=== PATIENT | male | born 2000 | race Caucasian/White ===

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

== ENCOUNTER 2021-10-13 16:32 | Emergency (ER) | payer MEDICAID ==
[~2021-10-13] VITALS: Ht 175.3 cm; Wt 70.3 kg
[2021-10-13 16:42] VITALS: BP 133/74
[2021-10-13] MEDS ORDERED: BENZ1LOZ MM (17:57)
[2021-10-13] MEDS ORDERED: PRED20TA5 PO (18:06)
--- NOTE | 2021-10-13 18:37 | NUR ---
Called - no show in lobby and outside.
--- NOTE | 2021-10-13 18:50 | NUR ---
21/m presents to ed with c/o sore throat x2 days stating he has began losing his voice. Patient denies cough, fevers, chills, n/v/d.
--- NOTE | 2021-10-13 19:06 | NUR ---
Patient left w/o dc work/instructions
== END 2021-10-13 19:06 | disposition home or self-care (01) ==
LOC: MED 16:32
DX: J02.9 Acute pharyngitis, unspecified (principal); J04.0 Acute laryngitis; Z79.899 Other long term (current) drug therapy
CPT/HCPCS: 99283

== ENCOUNTER 2021-10-16 20:57 | Emergency (ER) | payer MEDICAID ==
[~2021-10-16] VITALS: Ht 167.6 cm; Wt 70.3 kg
[~2021-10-16 20:57] MED LIST: BENZ1LOZ MM; PRED20TA5 PO
[2021-10-16 21:58] VITALS: BP 121/67
--- NOTE | 2021-10-16 22:04 | NUR ---
TO LOBBY FOLLOWING TRIAGE
--- NOTE | 2021-10-17 00:04 | NUR ---
PT CALLED FROM INSIDE LOBBY AND OUTSIDE NO RESPONSE.
--- NOTE | 2021-10-17 02:00 | NUR ---
CALLED BACK TO ER, NO ANSWER
== END 2021-10-17 02:00 | disposition left against medical advice (07) ==
LOC: MED 20:57
DX: R06.02 Shortness of breath (principal); Z53.21 Procedure and treatment not carried out due to patient leaving prior to being seen by health care provider

== ENCOUNTER 2021-10-19 13:56 | Emergency (ER) | payer MEDICAID ==
[~2021-10-19] VITALS: Ht 180.3 cm; Wt 68.9 kg
[2021-10-19 13:58] VITALS: BP 150/91
--- NOTE | 2021-10-19 14:06 | NUR ---
PT AMB TO BED 7.
--- NOTE | 2021-10-19 14:16 | NUR ---
BIB SELF C /O LUMP BEHIND LEFT EAR X 4 DAYS. DENIES TRAUMA/INJURY. PMH: DENIES
[2021-10-19] MEDS ORDERED: IBUP-2213 PO (14:36)
[2021-10-19 14:41] VITALS: BP 150/91
== END 2021-10-19 14:41 | disposition home or self-care (01) ==
LOC: MED 13:56
DX: R59.0 Localized enlarged lymph nodes (principal); Z79.899 Other long term (current) drug therapy
CPT/HCPCS: 99282

== ENCOUNTER 2021-10-29 11:18 | Emergency (ER) | payer MEDICAID ==
[~2021-10-29] VITALS: Ht 179.1 cm; Wt 65.4 kg
[~2021-10-29 11:18] MED LIST changes: +IBUP-2213 PO
[2021-10-29 11:19] VITALS: BP 120/79
--- NOTE | 2021-10-29 11:26 | NUR ---
PT AMB TO BED 12.
[2021-10-29] MEDS ORDERED: ALUMINUM HYD/MAG/SIMETHICONE 30 ML UDC PO ONE (12:30)
[2021-10-29] MEDS ORDERED: KETOROLAC 15 MG/ML VIAL IM ONE (12:30)
[2021-10-29 14:13] LABS: EOSINOPHILS # (AUTO) 0.1 K/uL (0-0.4); EOSINOPHILS % (AUTO) 2.3 % (0.0-4.0); HEMATOCRIT 45.1 % (36-52); HEMOGLOBIN 15.2 g/dL (12.0-18.0); LYMPHOCYTES # (AUTO) 1.3 K/uL (2.0-11.5); LYMPHOCYTES % (AUTO) 37.2 % (20.5-51.1); MEAN CORPUSCULAR HEMOGLOBIN 30 pg (27-31); MEAN CORPUSCULAR HGB CONC 34 g/dL (33-37); MEAN CORPUSCULAR VOLUME 88.7 fL (80-94); MONOCYTES # (AUTO) 0.4 K/uL (0.8-1.0); MONOCYTES % (AUTO) 10.8 % (1.7-9.3); NEUTROPHILS # (AUTO) 1.6 K/uL (1.8-7.7); NEUTROPHILS % (AUTO) 48.7 % (42.2-75.2); PLATELET COUNT (AUTO) 328 K/uL (140-450); RED BLOOD CELL COUNT(AUTO) 5.09 MIL/uL (4.20-6.10); RED CELL DISTRIBUTION WIDTH 13.7 % (11.6-13.7); WHITE BLOOD COUNT (AUTO) 3.4 K/uL (4.5-11.0)
[2021-10-29 14:35] LABS: ANION GAP 13.6 (8-16); ASPARTATE AMINOTRANSFERASE 18 U/L (15-37); CARBON DIOXIDE 27.9 mmol/L (21-32); CHLORIDE 102 mmol/L (98-107); CREATININE 0.9 mg/dL (0.6-1.3); GFR ARICAN-AMERICAN 138 mL/min (>90); GLUCOSE 91 mg/dL (74-106); LIPASE 97 U/L (73-393); POTASSIUM 3.5 mmol/L (3.5-5.1); SODIUM SERUM 140 mmol/L (136-145); TOTAL BILIRUBIN 0.6 mg/dL (0.0-1.0); UREA NITROGEN, BLOOD 8 mg/dL (7-18)
[2021-10-29 15:04] VITALS: BP 124/81
== END 2021-10-29 15:05 | disposition home or self-care (01) ==
LOC: MED 11:18
DX: R07.89 Other chest pain (principal); F15.90 Other stimulant use, unspecified, uncomplicated; R05.9 Cough, unspecified; F12.90 Cannabis use, unspecified, uncomplicated; Z79.1 Long term (current) use of non-steroidal anti-inflammatories (NSAID); Z79.899 Other long term (current) drug therapy
CPT/HCPCS: 36415; 71045; 80053; 83690; 84484; 85025; 93005; 96372; 99285; J1885

== ENCOUNTER 2023-10-29 11:48 | Emergency (ER) | payer MEDICAID ==
[~2023-10-29] VITALS: Ht 167.6 cm; Wt 77.6 kg
[2023-10-29 12:29] VITALS: BP 124/71; PULSE 80; RESP 16; TEMP 98.7; O2SAT 98
[2023-10-29] MEDS ORDERED: NAPR-337 PO (14:52)
[2023-10-29 15:01] VITALS: BP 124/71; PULSE 80; RESP 16; TEMP 98.7; O2SAT 98
== END 2023-10-29 15:01 | disposition home or self-care (01) ==
LOC: MED 11:48
DX: M94.0 Chondrocostal junction syndrome [Tietze] (principal); F12.90 Cannabis use, unspecified, uncomplicated; Z79.899 Other long term (current) drug therapy
CPT/HCPCS: 71045; 93005; 99283